=== PATIENT | female | born 1985 | race Caucasian/White ===

== ENCOUNTER → 2016-06-30 | Outpatient (CLI) | payer OTHER | END | disposition home or self-care (01) | LOC: C.PAPS 10:05 | PROVIDERS: ATTEND Obstetrics & Gynecology | DX: Z01.411 Encounter for gynecological examination (general) (routine) with abnormal findings (principal); R87.610 Atypical squamous cells of undetermined significance on cytologic smear of cervix (ASC-US) ==

== ENCOUNTER → 2016-12-21 | Outpatient (CLI) | payer OTHER ==
--- NOTE | 2016-12-21 10:00 | DIAGNOSTIC IMAGING REPORT ---
KUB HISTORY: Nephrolithiasis follow-up. Acute low back pain. COMPARISON: KUB 01/03/2014 FINDINGS: The bowel gas pattern is non-obstructive. There is no organomegaly. The previously questioned 4 mm left renal calculus is not clearly seen. Moderate volume of formed stool throughout the colon obscures the renal shadows. No definite urolithiasis identified. No pneumoperitoneum or pneumatosis. No fracture. IMPRESSION: 1. The previously questioned 4 mm left renal calculus is not identified on today's exam. The renal shadows are obscured by moderate volume of formed colonic stool. 2. Nonobstructive bowel gas pattern. Electronically signed by: Domingo Godoy M.D. 12/21/2016 9:59 AM Dictated Date/Time: 12/21/2016 9:57 AM
[2016-12-21 10:49] LABS: CALCULATED INSULIN SENSITIVITY 0.435; GLUCOSE LOG 1.9191; INSULIN FASTING 2.4 mU/L (3-25); INSULIN LOG 0.3802
[2016-12-21 10:50] LABS: PROLACTIN 8.12 ng/mL; THYROID STIMULATING HORMONE 1.72 uIu/ml (0.300-4.500)
== END | disposition home or self-care (01) ==
LOC: C.LAB 08:38
PROVIDERS: ATTEND Obstetrics & Gynecology
DX: Z31.41 Encounter for fertility testing (principal)

== ENCOUNTER → 2017-01-19 | Outpatient (CLI) | payer OTHER | END | disposition home or self-care (01) | LOC: C.LAB1850 10:57 | PROVIDERS: ATTEND Obstetrics & Gynecology | DX: Z32.00 Encounter for pregnancy test, result unknown (principal) ==

== ENCOUNTER → 2017-02-17 | Outpatient (CLI) | payer OTHER ==
[2017-02-17 14:46] LABS: BASO % 0.5 %; BASO ABS # 0.04 K/uL (0-0.2); COMPLETE YES; EOS % 0.7 %; HEMATOCRIT 34.9 % (37-47); IG% 0.2 %; LYMPH % 22.1 %; LYMPH ABS # 1.92 K/uL (1.2-3.4); MEAN CELL VOLUME 95.1 fL (80-100); MEAN CORPUSCULAR HEMOGLOBIN 34.1 pg (25-34); MEAN CORPUSCULAR HGB CONC 35.8 g/dl (32-36); MEAN PLATELET VOLUME 10.6 fL (7.4-10.4); NEUT % 70.5 %; PLATELET COUNT 249 K/uL (130-400); RED BLOOD COUNT 3.67 M/uL (4.2-5.4); WHITE BLOOD COUNT 8.67 K/uL (4.8-10.8)
[2017-02-17 14:47] LABS: MANUAL MICROSCOPIC REQUIRED? NO; URINE APPEARANCE CLEAR (CLEAR); URINE BILIRUBIN NEG (NEG); URINE COLOR YELLOW; URINE NITRITE NEG (NEG); UROBILINOGEN NEG (NEG)
[2017-02-17 14:49] LABS: REVIEW REQ? NO
[2017-02-19 01:47] LABS: CHLAMYDIA TRACH RNA*** NOT DETECTED (NOT DETECTED); GC (NEIS GONORRHOEAE)RNA** NOT DETECTED (NOT DETECTED)
== END | disposition home or self-care (01) ==
LOC: C.LAB1850 12:39
PROVIDERS: ATTEND Obstetrics & Gynecology
DX: O09.01 Supervision of pregnancy with history of infertility, first trimester (principal)

== ENCOUNTER 2020-01-21 09:55 | Inpatient (IN) ==
[2020-01-21] MEDS ORDERED: OXYTOCIN 30 UNITS/500 ML BAG IV PRN ×2 (10:20→14:55)
--- NOTE | 2020-01-21 10:24 | History & Physical Report ---
Date of Service January 21, 2020 Assessment & Plan (1) Normal labor: (2) Encounter for supervision of with history of infertility, antepartum: (3) Need for rhogam due to Rh negative mother: admit, iv, labs. desires epidural. anticip . fhts categ 1. History of Present Illness Chief Complaint: leaking since 7am and painful ctx Primary Care Provider: Chacorta Dominic Franz 34yo at 39+weeks ega presents to L&D with above cc. She was here overnight and sent home when cx did not change past 2cm. She notes ctx intensified and called to come in for evaluation and also had some new onset leaking since 7am, clear fluid. PNC c/b 1. rh neg, had rhogam 2. ascus neg hr hpv screen, consider pap pp PNL rh neg, ri, gbs neg, covid neg All Active Problems (Updated 01/21/20 @ 10:24 by Judy Finney MD, FACOG) Need for rhogam due to Rh negative mother Encounter for supervision of with history of infertility, antepartum Allergies Allergy/AdvReac Type Severity Reaction Status Date / Time dog dander Allergy Hives Verified 01/21/20 00:59 Home Medications Home Medications Medication Instructions Recorded Confirmed Type cetirizine [Zyrtec] 5 mg PO DAILY 01/21/20 01/21/20 History docusate sodium [Colace] 50 mg PO DAILY 01/21/20 01/21/20 History vit no.[id number] 1 tab PO DAILY 01/21/20 01/21/20 History [ Vitamin] Patient History Medical History (Updated 01/21/20 @ 10:27 by Judy Finney MD, FACOG) Encounter for pre-operative examination Nasal bone fx-closed Nasal septal deviation No known health problems Varicella vaccination Surgical History (Updated 06/15/19 @ 14:42 by Raquel Paula) History of adenoidectomy History of tonsillectomy History of tooth extraction wisdom Hx of breast augmentation Hx of shoulder surgery x2 to right S/P nasal septoplasty Family History (Updated 06/15/19 @ 14:42 by Raquel Paula) Father Diabetes Heart disease Hypertension Mother Thyroid disease Social History (Updated 06/15/19 @ 14:20 by Raquel Foster Smoking Status: Never smoker Second Hand Exposure: No; Hx Alcohol Use: Yes Alcohol type: wine Hx Substance Use: No Preferred Language: French Communication Ability: Effective 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 Beliefs That Will Affect Care: None marital status: marital status details: Chacorta Franz (30) [phone] Current Living Situation: Spouse Current Living Situation Comment: lives with spouse, son, dog, cat-spouse changing litter current occupational status: employed 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[employer] Feels Safe at Home: Yes Assistive Devices: Contacts and Glasses Review of Systems per hpi Physical Exam Constitutional: WD/WN, vitals as above Respiratory: normal respiratory effort, lungs clear to auscultation Cardiovascular: Rate/Rhythm: regular rate and regular rhythm Gastrointestinal (Abdomen): soft gravid nt EFW 6-7 # Musculoskeletal: no edema nontender calves Neurologic: grossly normal Psychiatric: A+Ox3, euthymic affect Genitourinary: Manual OB Exam: + cervical dilation 4 cm, + cervical effacement 100%, + station -2 and + amniotic fluid (SSE +pooling) clear, nitrazine positive and ferning present OB Exam Monitor Tracing: + external FHT monitor used (125 mod variability, reactive), + external uterine monitor used (q3), + category I and + normal FHT variability Results & Data ([facility]) Vital Signs (Past 12 Hours) Vital Signs Pulse BP 01/21/20 10:05 84 123/73 Coding Level of Care Code None Diagnoses Normal labor O80; Z37.9 Encounter for supervision of with history of infertility, antepartum O09.00 Need for rhogam due to Rh negative mother Z29.13
[2020-01-21] MEDS: LACTATED RINGER'S 1,000 ML IV PRN ×2 (10:30→12:00)
[2020-01-21] MEDS ORDERED: ePHEDrine sulfate 50 MG/ML AMP ONE (10:37)
[2020-01-21] MEDS ORDERED: BUPIVACAINE 0.25% 30 ML VIAL ONE (10:37)
[2020-01-21] MEDS ORDERED: fentaNYL citrate 100 MCG/2 ML VIAL ONE (10:37)
[2020-01-21] MEDS ORDERED: fentaNYL 2MCG/ML ROPIV 1.25MG/ML 100 ML BAG EPI ONE (10:38)
--- NOTE | 2020-01-21 10:44 | Anesthesiology Consultation ---
Date of Service January 21, 2020 Assessment & Plan (1) Encounter for pre-operative examination: Chart Review Chart Review: Acceptable Risk for Labor Epidural Consults Requested none ASA ASA2 Proposed Anesthesia Anesthesia Type: Labor Epidural Risk / Benefits Reviewed With: PT / POA / Parent / Guardian, Accepts Plan and Informed Consent Obtained History Allergies Allergy/AdvReac Type Severity Reaction Status Date / Time dog dander Allergy Hives Verified 01/21/20 00:59 Medications Home Medications Medication Instructions Recorded Confirmed Last Taken cetirizine [Zyrtec] 5 mg PO DAILY 01/21/20 01/21/20 01/20/20 08:00 docusate sodium [Colace] 50 mg PO DAILY 01/21/20 01/21/20 01/20/20 20:00 vit no.[id number] 1 tab PO DAILY 01/21/20 01/21/20 01/20/20 08:00 [ Vitamin] Past Medical History Medical History Encounter for pre-operative examination Nasal bone fx-closed Nasal septal deviation No known health problems Varicella vaccination Exercise / Class Metabolic Activity II 4-5 Yardwork/Stairs/Walk up hill Past Family History Family History Father Diabetes Heart disease Hypertension Mother Thyroid disease Past Surgical History Surgical History History of adenoidectomy History of tonsillectomy History of tooth extraction wisdom Hx of breast augmentation Hx of shoulder surgery x2 to right S/P nasal septoplasty Past Anesthesia History No Hx of Anesthesia Complications and No Family Hx of Anesthesia Complications History of PONV No Hx of PONV and No Hx of Motion Sickness Social History Smoking Status: Never smoker Hx Alcohol Use: Yes Alcohol type: wine alcohol intake frequency: a few times a month Hx Substance Use: No substance use type: does not use Physical Exam Vital Signs Last Vital Signs Pulse 84 01/21/20 10:05 BP 123/73 01/21/20 10:05 ENMT Mouth: no dentition abnormality Thyromental Distance: > or= 3.5 Finger Breadths Mallampati Class: II Neck normal visual inspection Respiratory normal respiratory effort Auscultation: lungs clear to auscultation bilaterally Cardiovascular Rate/Rhythm: regular rate and regular rhythm
[2020-01-21 10:46] LABS: Hematocrit (blood only) 35.6 % (37-47); Hemoglobin 12.1 g/dL (12.0-16.0); Mean Corpuscular Hemoglobin 31.8 pg (25-34); Mean Corpuscular Volume 93.7 fL (80-100); Mean Platelet Volume 11.3 fL (7.4-10.4); Platelet Count 202 K/uL (130-400); RDW Coefficient of Variation 13.4 % (11.5-14.5); RDW Standard Deviation 45.9 fL (36.4-46.3); White Blood Count 10.12 K/uL (4.8-10.8)
[2020-01-21] MEDS ORDERED: NALOXONE HCL 1 MG in SODIUM CHLORIDE 0.9% 1000ML 1,000 ML IV PRN (11:08)
[2020-01-21] MEDS ORDERED: ePHEDrine sulfate 50 MG/ML AMP IV PRN (11:08)
[2020-01-21] MEDS ORDERED: NALOXONE HCL 0.4 MG/1 ML VIAL/CARP IV PRN (11:08)
[2020-01-21] MEDS ORDERED: ONDANSETRON INJ 2 MG/ML 2 ML VIAL IV PRN (11:08)
[2020-01-21] MEDS ORDERED: DiphenhydrAMINE HCL 50 MG/ML VIAL IV PRN (11:08)
[2020-01-21] MEDS ORDERED: fentaNYL 2MCG/ML ROPIV 1.25MG/ML 100 ML BAG EPI PRN (11:08)
--- NOTE | 2020-01-21 12:21 | Labor Progress Brief Note ---
Date of Service January 21, 2020 Subjective Reason For Note: Routine Evaluation more comfortable with epidural. feels some left sided pain Assessment & Plan (1) Encounter for supervision of with history of infertility, antepartum: (2) Need for rhogam due to Rh negative mother: (3) Normal labor: good cx change. fhts categ 1. expectant mgmt. Admission and Anticipated Discharge Date Admission Date: January 21, 2020 Physical Exam Constitutional: WD/WN, vitals as above Psychiatric: A+Ox3, euthymic affect Genitourinary: Manual OB Exam: + cervical dilation 7 cm, + cervical effacement 100% and + station -1 OB Exam Monitor Tracing: + external FHT monitor used (140 mod variability ), + external uterine monitor used (q3), + category I and + normal FHT variability Results & Data ([facility]) Vital Signs (Past 12 Hours) Vital Signs Pulse BP Pulse Ox 01/21/20 12:14 86 95 01/21/20 12:12 98 H 94 01/21/20 12:09 77 97 01/21/20 12:08 76 112/58 L 01/21/20 12:04 84 97 01/21/20 11:59 80 97 01/21/20 11:54 83 98 01/21/20 11:51 75 102/53 L 01/21/20 11:49 75 98 01/21/20 11:44 75 99 01/21/20 11:39 68 98 01/21/20 11:34 72 113/62 99 01/21/20 11:31 70 112/62 01/21/20 11:29 69 99 01/21/20 11:28 73 110/60 01/21/20 11:25 71 111/57 L 01/21/20 11:24 74 99 01/21/20 11:22 66 107/60 01/21/20 11:19 72 113/68 98 01/21/20 11:18 80 89 L 01/21/20 11:16 74 112/64 01/21/20 11:14 68 100 01/21/20 11:13 79 111/62 01/21/20 11:12 74 91 01/21/20 11:10 75 107/61 01/21/20 11:09 76 100 01/21/20 11:07 87 98/58 L 91 09/26/20 11:04 73 106/58 L 99 01/21/20 11:01 73 112/59 L 01/21/20 10:59 92 H 100 01/21/20 10:58 75 110/63 01/21/20 10:54 82 100 01/21/20 10:50 80 87 L 01/21/20 10:49 80 99 01/21/20 10:48 75 119/68 01/21/20 10:05 84 123/73 Coding Level of Care Code None Diagnoses Encounter for supervision of with history of infertility, antepartum O09.00 Need for rhogam due to Rh negative mother Z29.13 Normal labor O80; Z37.9
[2020-01-21] MEDS ORDERED: ACETAMINOPHEN 325 MG TAB PO PRN (14:55)
[2020-01-21] MEDS ORDERED: OXYCODONE/ACETAMINOPHEN 5mg/325mg TAB PO PRN (14:55)
--- NOTE | 2020-01-21 14:56 | Delivery Summary ---
Vaginal Delivery Summary Date of Service January 21, 2020 The patient dilated to complete and pushed to deliver a viable female A pgars 9 and 9 via over intact perineum. Mouth and nose bulb suctioned at perineum. Shoulders and body delivered with ease. Infant was vigorous and crying at . Cord clamped at 30 seconds of life and to maternal abdomen where the cord was then doubly clamped and cut. Placenta delivered spontaneously and intact, three-vessel cord. Hemostasis achieved with dilute pitocin and uterine massage and drainage of the bladder for approximately 300 cc under sterile conditions. Cervix and sulci intact. EBL 200 cc. Mother and baby stable recovery.
[2020-01-21] MEDS ORDERED: BENZOCAINE 20% AER SPR 82.5 GM CAN EXT PRN (15:57)
[2020-01-21] MEDS ORDERED: SUPERCREAM 0.870% 15 GM JAR EXT PRN (15:57)
[2020-01-21] MEDS ORDERED: HYDROCORTISONE ACETATE 25 MG SUPP PR PRN (15:57)
[2020-01-21] MEDS ORDERED: DIPHTHERIA/TETANUS/PERTUSSIS 0.5 ML SYR/VIAL IM ONE (15:57)
[2020-01-21] MEDS ORDERED: OXYTOCIN 20 UNITS in LACTATED RINGER'S 1,000 ML IV SCH (16:15)
[2020-01-21] MEDS: IBUPROFEN 600 MG TAB PO PRN ×2 (16:31→20:42)
--- NOTE | 2020-01-21 17:56 | Anesthesia Procedure Note ---
Date of Service January 21, 2020 Anesthesia Post Epidural Note Vital Signs Vital Signs: Temp Pulse Resp BP Pulse Ox 98.1 F 86 18 102/55 L 96 01/21/20 12:55 01/21/20 17:49 01/21/20 17:05 01/21/20 17:49 01/21/20 14:54 Pain Intensity Left Lower Abdomen: Pain Intensity: 3 Notes Mental Status: alert / awake / arousable and participated in evaluation Nausea / Vomiting: adequately controlled Pain: adequately controlled Airway Patency, RR, SpO2: stable & adequate BP & HR: stable & adequate Hydration State: stable & adequate Neuraxial Anesthesia: was administered and sensory block is resolving Anesthetic Complications: no major complications apparent and Pt Satisfied with anesthetic care Epidural: Removed without complications and With tip intact
[2020-01-21] MEDS: DOCUSATE SODIUM 100 MG CAP PO SCH (20:42)
--- NOTE | 2020-01-22 08:16 | Obstetrical Progress Note ---
Date of Service January 22, 2020 Assessment & Plan (1) Normal labor: (2) Need for rhogam due to Rh negative mother: doing well,stable, desires d/c home, instructions reviewed. f/u 6wk pp check. needs rhogam. breast/ri. Subjective Ambulation: ambulating normally Voiding: no voiding problems Passing Gas:: Yes Diet Tolerance:: regular diet Lochia:: Small Feeding Type:: breast feeding no pain issues. still needs her rhophylac Physical Exam Constitutional WD/WN, vitals as above Respiratory normal respiratory effort, lungs clear to auscultation Cardiovascular Rate/Rhythm: regular rate and regular rhythm Gastrointestinal (Abdomen) Inspection/Auscultation: abdomen normal to inspection Percussion/Palpation: abdomen soft; abdomen nontender Fundus firm 1cm down Musculoskeletal nt calves no edema Neurologic grossly normal Psychiatric A+Ox3, euthymic affect Results & Data ([facility]) Vital Signs (Past 12 Hours) Vital Signs Temp Pulse Resp BP 01/22/20 03:38 98.1 F 80 18 105/69 01/21/20 23:47 98.2 F 81 18 117/75
[2020-01-22] MEDS: DOCUSATE SODIUM 100 MG CAP PO SCH (08:17)
[2020-01-22] MEDS: IBUPROFEN 600 MG TAB PO PRN (12:38)
== END 2020-01-22 15:35 | disposition home or self-care (01) | DRG 807 ==
LOC: OPB 09:55 → 4S1 09:56 → 4S2 18:15
DX: O80 Encounter for full-term uncomplicated delivery; Z37.0 Single live birth; Z3A.39 39 weeks gestation of pregnancy

== ENCOUNTER 2022-06-04 05:02 | Inpatient (IN) ==
[2022-06-04] MEDS ORDERED: LIDOCAINE 1% LOCAL 20 ML VIAL INFIL PRN (05:35)
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
[2022-06-04] MEDS ORDERED: ePHEDrine sulfate 50 MG/ML AMP ONE (05:41)
[2022-06-04] MEDS ORDERED: BUPIVACAINE 0.25% 30 ML VIAL ONE (05:42)
[2022-06-04] MEDS ORDERED: fentaNYL 2MCG/ML ROPIVACAINE 1.25MG/ML 100 ML BAG EPI ONE (05:42)
[2022-06-04] MEDS ORDERED: LIDOCAINE 2%/EPINEPHRINE 1:200,000 20 ML SDV ONE (05:42)
[2022-06-04] MEDS ORDERED: fentaNYL citrate 100 MCG/2 ML VIAL ONE (05:42)
[2022-06-04] MEDS ORDERED: SODIUM CHLORIDE 0.9% INJ 10 ML VIAL ONE (05:42)
[2022-06-04] MEDS: LACTATED RINGER'S 1,000 ML IV PRN ×3 (05:46→11:29)
[2022-06-04] MEDS ORDERED: ePHEDrine sulfate 50 MG/ML AMP IV PRN (06:05)
[2022-06-04] MEDS ORDERED: fentaNYL 2MCG/ML ROPIVACAINE 1.25MG/ML 100 ML BAG EPI PRN (06:05)
[2022-06-04] MEDS ORDERED: diphenhydrAMINE 50 MG/ML VIAL IV PRN (06:05)
[2022-06-04] MEDS ORDERED: NALOXONE HCL 0.4 MG/1 ML VIAL/CARP IV PRN (06:05)
[2022-06-04] MEDS ORDERED: NALBUPHINE HCL INJ 10 MG/ML AMP IV PRN (06:05)
[2022-06-04] MEDS ORDERED: NALOXONE HCL 1 MG in SODIUM CHLORIDE 0.9% 1000ML 1,000 ML IV PRN (06:05)
--- NOTE | 2022-06-04 06:05 | Anesthesiology Consultation ---
Date of Service June 04, 2022 Assessment & Plan (1) Encounter for pre-operative examination: Chart Review Chart Review: Patient NOT seen in Pre Admission Testing and Acceptable Risk for Labor Epidural Consults Requested none History Height/Weight Height: 5 ft 2 in Weight: 65.771 kg Allergies Allergy/AdvReac Type Severity Reaction Status Date / Time dog dander Allergy Intermediate Hives Verified 05/29/22 10:50 Influenza Virus Vaccines Allergy Hives Verified 05/29/22 10:50 Medications Home Medications Medication Instructions Recorded Confirmed Last Taken cetirizine 5 mg tablet 5 mg PO DAILY 01/21/20 06/04/22 06/04/22 vits no.124-ferrous fum 1 tab PO DAILY 01/21/20 06/04/22 06/03/22 27 mg iron-folic acid 800 mcg tablet ( Vitamin) polyethylene glycol 3350 17 17 g PO DAILY 03/14/21 06/04/22 06/03/22 gram/dose oral powder (Miralax) biotin 1 pill PO DAILY 11/11/21 05/29/22 05/26/22 omeprazole 40 mg capsule,delayed 40 mg PO DAILY 06/04/22 06/04/22 06/03/22 release Active Medications Generic Name Dose Route Start Last Admin Trade Name Freq PRN Reason Stop Dose Admin Lactated Ringer's 1,000 mls @ 125 mls/hr 06/04/22 05:35 06/04/22 05:46 Lr IV 06/06/22 05:34 999 mls/hr .Q8H PRN Administration L&D Protocol Protocol Past Medical History Medical History Nasal bone fx-closed Nasal septal deviation Varicella vaccination Past Family History Family History Father Diabetes Heart disease Hypertension Mother Thyroid disease Denies family history of Ovarian cancer Breast cancer Colorectal cancer Past Surgical History Surgical History History of adenoidectomy History of tonsillectomy History of tooth extraction wisdom Hx of breast augmentation Hx of shoulder surgery x2 to right S/P nasal septoplasty Social History Smoking Status: Never smoker Hx Alcohol Use: No Alcohol type: wine alcohol intake frequency: a few times a month Hx Substance Use: No substance use type: does not use Physical Exam Vital Signs Last Vital Signs Temp 97.9 F 06/04/22 05:20 Pulse 82 06/04/22 06:01 Resp 20 06/04/22 05:20 BP 111/69 06/04/22 05:18 Pulse Ox 98 06/04/22 06:01
[2022-06-04 06:22] LABS: Hematocrit (blood only) 32.6 % (37.0-47.0); Hemoglobin 11.3 g/dl (12.0-16.0); Mean Corpuscular Hemoglobin 30.6 pg (25.0-34.0); Mean Corpuscular Hgb Conc 34.7 g/dL (32.0-36.0); Mean Corpuscular Volume 88.3 fL (80.0-100.0); Mean Platelet Volume 12.5 fL (9.4-12.4); Platelet Count 193 K/uL (130-400); RDW Coefficient of Variation 12.2 % (11.5-14.5); RDW Standard Deviation 39.4 fL (36.4-46.3); Red Blood Count 3.69 M/uL (4.20-5.40); White Blood Count 10.41 K/ul (4.8-10.8)
[2022-06-04] MEDS ORDERED: OXYTOCIN 30 UNITS/500 ML BAG IV PRN (10:20)
--- NOTE | 2022-06-04 10:20 | Labor Progress Brief Note ---
Date of Service June 04, 2022 Subjective Patient comfortable with epidural Assessment & Plan (1) Uterine contractions at greater than 20 weeks of gestation: Plan: Discussed with patient, toco Q3-4, could augment to bring ctx closer to Q2min, though change is occurring; she is agreeable to augmentation hoping to shorten remainder of labor and will order pitocin. Admission and Anticipated Discharge Date Admission Date: June 04, 2022 Physical Exam Genitourinary: Ctx Q3-4m FHT Cat 1 Cvx 7/90/0 LOF clear Results & Data ([facility]) Vital Signs (Past 12 Hours) Vital Signs Temp Pulse Resp BP Pulse Ox O2 Del Method 06/04/22 07:05 97.7 F 16 06/04/22 07:05 Room Air 06/04/22 05:20 97.9 F 20 06/04/22 10:16 64 98 06/04/22 10:14 70 102/68 06/04/22 10:11 70 97 06/04/22 10:06 65 97 06/04/22 10:01 71 97 06/04/22 09:59 69 114/74 06/04/22 09:56 69 97 06/04/22 09:51 69 96 06/04/22 09:46 63 97 06/04/22 09:43 61 104/60 06/04/22 09:41 70 98 06/04/22 09:36 66 98 06/04/22 09:31 64 98 06/04/22 09:28 69 109/67 06/04/22 09:26 64 97 06/04/22 09:21 66 96 06/04/22 09:18 75 92 06/04/22 09:16 70 97 06/04/22 09:13 64 109/68 06/04/22 09:11 68 97 06/04/22 09:06 69 96 06/04/22 09:00 18 06/04/22 09:00 97.7 F 18 06/04/22 09:01 70 97 06/04/22 08:58 66 113/66 06/04/22 08:56 70 97 06/04/22 08:51 80 97 06/04/22 08:46 74 96 06/04/22 08:41 67 95 06/04/22 08:36 69 95 06/04/22 08:31 68 97 06/04/22 08:30 67 110/58 L 06/04/22 08:26 64 97 06/04/22 08:21 73 97 06/04/22 08:16 72 96 06/04/22 08:14 77 108/58 L 06/04/22 08:11 66 96 06/04/22 08:06 69 98 06/04/22 08:01 71 97 06/04/22 07:58 67 103/58 L 06/04/22 07:56 73 97 06/04/22 07:51 73 97 06/04/22 07:46 67 97 06/04/22 07:43 70 106/59 L 06/04/22 07:41 68 97 06/04/22 07:36 72 96 06/04/22 07:31 75 97 06/04/22 07:30 98 H 92 06/04/22 07:28 73 111/71 06/04/22 07:26 74 97 06/04/22 07:21 77 97 06/04/22 07:16 95 H 99 06/04/22 07:13 84 112/69 06/04/22 07:11 77 97 06/04/22 07:06 70 98 06/04/22 07:01 92 H 98 06/04/22 06:56 76 97 06/04/22 06:57 73 118/61 06/04/22 06:51 83 98 06/04/22 06:48 18 06/04/22 06:48 73 18 120/68 06/04/22 06:46 73 97 06/04/22 06:43 77 18 113/62 06/04/22 06:41 73 97 06/04/22 06:38 74 18 99/54 L 06/04/22 06:36 74 97 06/04/22 06:35 74 98/57 L 06/04/22 06:32 78 116/62 06/04/22 06:31 94 H 98 06/04/22 06:29 76 105/55 L 06/04/22 06:26 97 06/04/22 06:26 106 H 06/04/22 06:26 78 105/57 L 06/04/22 06:23 73 117/65 06/04/22 06:21 92 H 98 06/04/22 06:20 18 06/04/22 06:20 83 18 121/73 0223 06:16 78 99 06/04/22 06:17 18 06/04/22 06:17 75 18 122/70 06/04/22 06:11 80 98 06/04/22 06:06 82 97 06/04/22 06:01 82 98 06/04/22 05:56 84 98 06/04/22 05:51 98 H 98 06/04/22 05:18 86 111/69 Coding Level of Care Code None Diagnoses Uterine contractions at greater than 20 weeks of gestation O47.9
[2022-06-04] MEDS: OXYTOCIN 30 UNITS/500 ML BAG IV PRN ×2 (13:17→14:16)
--- NOTE | 2022-06-04 13:33 | Delivery Summary ---
Vaginal Delivery Summary Date of Service June 04, 2022 Vaginal Delivery Summary DIAGNOSES: 1. Toro intrauterine at 39w2d gestation. 2. Spontaneous onset of labor. 3. Group B Streptococcus Neg. PROCEDURE: Spontaneous vaginal delivery without laceration. SURGEON: Macrina Brown MD. ALARM OPERATOR: None. ESTIMATED BLOOD LOSS: 250 mL. COMPLICATIONS: None. PLACENTA: Spontaneous and intact with a 3-vessel cord. DISPOSITION: Stable to labor and delivery. DESCRIPTION: The patient pushed well and brought the head to in DOA position. The infant's head was allowed to deliver with contraction force and no further active pushing, with the perineum protected during this time. There was a double nuchal cord, which was able to be reduced on the perineum. The left shoulder was anterior. The shoulders and body delivered without any difficulty, and the infant was placed on the maternal abdomen. It was vigorous and moving all extremities, and making respiratory efforts. The cord was doubly clamped by the MD and then cut by the FOB. The placenta delivered spontaneously and was noted to be intact and with a 3VC. The cervix, vagina and perineum were examined and were found to be without defect requiring repair. The fundus was firm and lochia minimal immediately after delivery. [facility] Vaginal Delivery Charge Vaginal Delivery Codes: 14612 global code for the antepartum, delivery, and post-
[2022-06-04] MEDS ORDERED: DIPHTHERIA/TETANUS/PERTUSSIS 0.5mL SYR/VIAL (Age 7+yrs) IM ONE (13:49)
[2022-06-04] MEDS ORDERED: HYDROCORTISONE ACETATE 25 MG SUPP PR PRN (13:49)
[2022-06-04] MEDS ORDERED: oxyCODONE/ACETAMINOPHEN 5mg/325mg TAB PO PRN (13:49)
[2022-06-04] MEDS ORDERED: BENZOCAINE 20% AER SPR 82.5 GM CAN EXT PRN (13:49)
[2022-06-04] MEDS ORDERED: ACETAMINOPHEN 325 MG TAB PO PRN (13:49)
--- NOTE | 2022-06-04 16:15 | Anesthesia Procedure Note ---
Date of Service June 04, 2022 Anesthesia Post Epidural Note Vital Signs Vital Signs: Temp Pulse Resp BP Pulse Ox O2 Del Method 36.5 C 63 16 134/73 92 06/04/22 13:30 06/04/22 15:27 06/04/22 15:30 06/04/22 15:27 06/04/22 13:25 06/04/22 07:05 Pain Intensity Bilateral Lower Abdomen: Pain Intensity: 1 Notes Mental Status: alert / awake / arousable Nausea / Vomiting: adequately controlled Pain: adequately controlled Airway Patency, RR, SpO2: stable & adequate BP & HR: stable & adequate Hydration State: stable & adequate Neuraxial Anesthesia: was administered and sensory block is resolving Anesthetic Complications: no major complications apparent and Pt Satisfied with anesthetic care Epidural: Removed without complications and With tip intact
[2022-06-04] MEDS: IBUPROFEN 600 MG TAB PO PRN ×2 (16:36→23:21)
[2022-06-04] MEDS: DOCUSATE SODIUM 100 MG CAP PO SCH (20:13)
[2022-06-05] MEDS: IBUPROFEN 600 MG TAB PO PRN ×2 (04:11→09:40)
--- NOTE | 2022-06-05 05:39 | Obstetrical Progress Note ---
Date of Service <Honey GreySharla Caballero DO - Last Filed: 06/05/22 06:28> June 05, 2022 Assessment & Plan <Honey GreySharla Caballero DO - Last Filed: 06/05/22 06:28> (1) Status post vaginal delivery: continue OOB, ambulation, diet as tolerated - Plan for 6 week post f/u <Macrina Brown MD - Last Filed: 06/05/22 06:39> (1) Status post vaginal delivery: Subjective <Honey S. DO Federico - Last Filed: 06/05/22 06:28> Ale is a 36 y/o female who is now PPD # 1 following vaginal delivery at 39 2/7 weeks. Reports feeling well overall this morning. Mild abdominal cramping, pain well managed on analgesics. Voiding. Tolerating meals overnight and able to ambulate some. Is passing gas and had a bowel movement. Some persistent lochia with some improvement this morning. Breast feeding. Review of Systems Denies fever, chills, sweats Denies shortness of breath, difficulty breathing, chest pain, palpitations, chest pressure. Denies breast pain. Denies dysuria. Denies headache or changes in vision. Physical Exam <Honey SSharla Caballero DO - Last Filed: 06/05/22 06:28> General: Alert, oriented. No acute distress. Cardiac: Regular rate and rhythm, no murmurs/rubs/gallops. Respiratory: Clear to auscultation bilaterally a/p, no wheezes/rales/rhonchi. No increased work of breathing. Symmetrical chest rise. No respiratory distress. Abdomen: Soft, nontender, nondistended. Uterus: Uterine fundus firm, palpable 1 cm below umbilicus. Lower Extremities: No lower extremity edema or swelling. No deep calf pain. Results & Data ([facility]) <Honey Primo Caballero DO - Last Filed: 06/05/22 06:28> Vital Signs (Past 12 Hours) Vital Signs Temp Pulse Resp BP Pulse Ox O2 Del Method 06/05/22 03:45 36.5 C 63 18 121/76 99 Room Air 06/04/22 23:20 Room Air 06/04/22 23:20 36.5 C 75 18 118/72 98 Room Air 06/04/22 20:00 36.6 C 66 18 116/72 95 Room Air <Macrina Brown MD - Last Filed: 06/05/22 06:39> Co-Signing Physician Notes Resident Physician Supervision Note: I interviewed and examined the patient. Discussed with Dr. Caballero and agree with findings and plan as documented in the note. Any exceptions or clarifications are listed here: [ ] Documented By: Macrina Brown MD, FACOG Resident Activity Tracking <Honey Caballero, - Last Filed: 06/05/22 06:28> Resident Involvement: Resident Care Provided Care Provided: OB Delivery (Post )
[2022-06-05] MEDS ORDERED: PRENATAL VITAMIN 1 TAB PO SCH (08:00)
[2022-06-05] MEDS ORDERED: PANTOprazole 40 MG TAB PO SCH (09:00)
[2022-06-05] MEDS ORDERED: CETIRIZINE HCL 10 MG TABLET PO SCH (09:00)
[2022-06-05 09:29] LABS: Hemoglobin 11.6 g/dl (12.0-16.0); Mean Corpuscular Hemoglobin 31.1 pg (25.0-34.0); Mean Corpuscular Hgb Conc 34.1 g/dL (32.0-36.0); Mean Corpuscular Volume 91.2 fL (80.0-100.0); Mean Platelet Volume 12.1 fL (9.4-12.4); Platelet Count 187 K/uL (130-400); RDW Coefficient of Variation 12.3 % (11.5-14.5); RDW Standard Deviation 40.7 fL (36.4-46.3); Red Blood Count 3.73 M/uL (4.20-5.40); White Blood Count 12.47 K/ul (4.8-10.8)
[2022-06-05] MEDS: DOCUSATE SODIUM 100 MG CAP PO SCH (09:41)
== END 2022-06-05 15:26 | disposition home or self-care (01) | DRG 807 ==
LOC: OPB 05:02 → 4S1 05:04 → 4E2 16:37